=== PATIENT | female | born 1970 | race Caucasian/White ===

== ENCOUNTER 2023-07-14 17:08 | Emergency (ER) | payer OTHER, SELFPAY ==
[2023-07-14 17:59] VITALS: BP 159/109; PULSE 92; RESP 20; TEMP 36.8; O2SAT 98
[2023-07-14 22:11] VITALS: BP 158/99; PULSE 74; RESP 16; O2SAT 100
--- NOTE | 2023-07-14 23:44 | ED.GENADULT ---
HPI - General Adult General Chief complaint: Wound/Laceration Stated complaint: left middle and ring finger laceration Time Seen by Provider: 07/14/23 22:10 Source: patient Mode of arrival: ambulatory Limitations: no limitations History of Present Illness HPI narrative: This is a 53-year-old female who presents to the ED with chief complaint of left middle finger laceration while using a box knife tonight. She accidentally cut the finger while trying to cut backwards. Reports minor cuts of the left 4th finger but more significant to the middle finger. Denies any further sites of pain or injury. Denies numbness or weakness. Bleeding controlled. Related Data Allergies Allergy/AdvReac Type Severity Reaction Status Date / Time No Known Allergies Allergy Verified 07/14/23 22:11 Review of Systems Review of Systems: All systems as dictated in HPI Exam Narrative: GENERAL: Well-appearing, well-nourished, and in no acute distress. HEAD: Normocephalic, atraumatic. EYES: PERRLA and EOMI. ENT: Nares clear, no rhinorrhea or epistaxis. Mucous membranes moist. Oropharynx without tonsillar hypertrophy exudate or other lesions. NECK: Supple. No adenopathy or masses. CHEST: No respiratory distress. Clear to auscultation. No wheezes rales or rhonchi HEART: Regular rate and rhythm. No murmur heard. Normal peripheral pulses. ABDOMEN: Soft, nontender, nondistended, normal active bowel sounds. MSK: Normal range of motion. No edema. SKIN: 3 cm laceration to the distal middle finger palmar, abutting the nail but does not involve nail. Bleeding controlled. NEURO: Alert and oriented x3. No focal deficits. PSYCH: Normal mood and affect. Course Vital Signs Vital signs: Vital Signs Temperature 98.2 F 07/14/23 17:59 Pulse Rate 92 07/14/23 17:59 Respiratory Rate 20 07/14/23 17:59 Blood Pressure 159/109 H 07/14/23 17:59 Pulse Oximetry 98 07/14/23 17:59 Oxygen Delivery Room Air 07/14/23 17:59 Temperature 98.2 F 07/14/23 17:59 Pulse Rate 74 07/14/23 22:11 Respiratory Rate 16 07/14/23 22:11 Blood Pressure 158/99 H 07/14/23 22:11 Pulse Oximetry 100 07/14/23 22:11 Oxygen Delivery Room Air 07/14/23 17:59 Procedures Laceration Laceration 1: Date: 07/14/23 Time: 23:44 Site: hand (Middle finger) Side (If applicable): left Size (cm): 3 Description: linear Depth: simple, single layer Local Anesthetic: lidocaine 1% (Digital block) Amount of anesthesia used (mL): 3 Pre-repair: wound explored and irrigated extensively ====== Skin Level ====== Skin layer closed with: nylon Size (cm): 5-0 Number of sutures: 6 Technique: simple, interrupted ====== Subcutaneous Layer ====== ====== Muscle Layer ====== ====== Tendon Layer ====== Medical Decision Making MDM Narrative Medical decision making narrative: This is a 53-year-old female who presents to the ED with chief complaint of left middle finger injury/laceration. Vitals are normal. Exam shows 3 cm laceration. No nail involvement. Wound was well cleaned and irrigated here in the department. Sutures placed. Tetanus updated. Laceration instructions given. Pt will be discharged in stable condition. Return precautions given and supportive measures discussed. Pt is understanding and agreeable with plan for discharge and follow-up with PCP. Vital Signs Vital Signs: Vital Signs Temperature 98.2 F 07/14/23 17:59 Pulse Rate 92 07/14/23 17:59 Respiratory Rate 20 07/14/23 17:59 Blood Pressure 159/109 H 07/14/23 17:59 Pulse Oximetry 98 07/14/23 17:59 Oxygen Delivery Room Air 07/14/23 17:59 Temperature 98.2 F 07/14/23 17:59 Pulse Rate 74 07/14/23 22:11 Respiratory Rate 16 07/14/23 22:11 Blood Pressure 158/99 H 07/14/23 22:11 Pulse Oximetry 100 07/14/23 22:11 Oxygen Delivery Room Air
[2023-07-15] MEDS: TETANUS,DIPHTHERIA,AC PERTUSSIS ADULT (0.5 ML) BOOSTRIX IM (00:07)
== END 2023-07-15 00:11 | disposition home or self-care (01) ==
PROVIDERS: Emergency Provider Physician Assistant
DX: S61.213A Laceration without foreign body of left middle finger without damage to nail, initial encounter (principal); Z23 Encounter for immunization; W27.0XXA Contact with workbench tool, initial encounter
CPT/HCPCS: 12002; 90471; 90715; 99282

== ENCOUNTER 2023-07-16 16:49 | Emergency (ER) | payer OTHER, SELFPAY ==
[2023-07-16 16:56] VITALS: BP 145/80; PULSE 84; RESP 16; TEMP 36.6; O2SAT 100
--- NOTE | 2023-07-16 17:11 | ED.GENADULT ---
HPI - General Adult General Chief complaint: Wound/Laceration Stated complaint: Stitches Source: patient Mode of arrival: ambulatory Limitations: no limitations History of Present Illness HPI narrative: Patient presents for evaluation of redness to the 3rd digit left hand. She was evaluated on the emergency department on 07/14/2023 for a laceration that she sustained when she accidentally cut herself. She had six sutures placed at that time. Today she noted redness surrounding the laceration on the lateral aspect of the digit. Denies any drainage from the area. No fever, chills, nausea, vomiting. She is not diabetic. UTD on tetanus. She has mild pain in the affected area, without numerical rating or descriptive quality. No paresthesias. Related Data Home Medications Medication Instructions Recorded Confirmed cyclosporine 0.09 % eye drops in a 1 drp ophthalmic (eye) DAILY 07/16/23 07/16/23 dropperette (Cequa) Allergies Allergy/AdvReac Type Severity Reaction Status Date / Time No Known Allergies Allergy Verified 07/16/23 17:03 Review of Systems Review of Systems: CONSTITUTIONAL: Denies fever, chills, or sweats. EYES: Denies visual changes, redness, or discharge. ENT: Denies rhinorrhea, congestion, sore throat, or otalgia. CARDIOVASCULAR: Denies chest pain, palpitations, or edema. RESPIRATORY: Denies cough or dyspnea. GASTROINTESTINAL: Denies abdominal pain, nausea, vomiting, or diarrhea. GENITOURINARY: Denies dysuria or hematuria. SKIN: Reports healing laceration to 3rd digit of the left hand with surrounding redness MUSCULOSKELETAL: Denies back pain, joint pain, or myalgia. NEUROLOGIC: Denies headache, numbness, dizziness, or weakness. PSYCHIATRIC: Denies anxiety or depression. [facility] Past Medical History Medical History No pertinent past medical history Surgical History Surgical History No pertinent past surgical history Family History Family History Mother Family history non-contributory Social History Social History Smoking status: Never smoker Substance use: never Gender identity (if verbalized by the patient): Female Spiritual care concerns: No Exam Narrative: GENERAL: Well-appearing, well-nourished, and in no acute distress. HEAD: Normocephalic, atraumatic. EYES: PERRLA and EOMI. ENT: Nares clear, no rhinorrhea or epistaxis. Mucous membranes moist. Oropharynx without tonsillar hypertrophy exudate or other lesions. Bilateral TMs pearly lucas nonbulging NECK: Supple. No adenopathy or masses. No carotid bruits or JVD CHEST: Clear to auscultation. No respiratory distress. No wheezes rales or rhonchi HEART: Regular rate and rhythm. No murmur heard. Normal peripheral pulses. ABDOMEN: Soft, nontender, nondistended, normal active bowel sounds. EXTREMITIES: Normal range of motion. No edema. SKIN: There is a 3 cm laceration to the distal phalanx of the 3rd digit of the left hand in a flap formation. Wound is well approximated, but there is erythema surrounding the laceration which is limited to the distal phalanx. NEURO: No focal deficits. Alert and oriented x3. PSYCH: Normal mood and affect. Course Course Emergency Course: This is a 53-year-old female who presented for evaluation of redness to the distal phalanx of her 3rd digit of the left hand after recent laceration repair. Will initiate antibiotic therapy with cephalexin today. Doubt MRSA component as there is no purulence however I advised that if her symptoms persist or worsen she should return here or go to the ER. She should also go to the ER for fever, chills, nausea, vomiting or other concerning symptoms. Pt in agreement with plan of care. Level of Care: Express Care Vi
== END 2023-07-16 17:12 | disposition home or self-care (01) ==
PROVIDERS: Emergency Provider Nurse Practitioner
DX: T81.41XA Infection following a procedure, superficial incisional surgical site, initial encounter (principal); L08.9 Local infection of the skin and subcutaneous tissue, unspecified
CPT/HCPCS: 99213; G0463

== ENCOUNTER 2023-07-21 14:03 | Emergency (ER) | payer OTHER, SELFPAY ==
[2023-07-21 14:11] VITALS: BP 132/82; PULSE 92; RESP 16; TEMP 36.9; O2SAT 97
--- NOTE | 2023-07-21 14:12 | ED.SKABFB ---
HPI - Skin/Abscess/Foreign Bdy General Chief complaint: Skin/Abscess/Foreign Body Stated complaint: Stitches Time Seen by Provider: 07/21/23 14:12 Source: patient Mode of arrival: ambulatory Limitations: no limitations History of Present Illness HPI narrative: Patient is a 53-year-old female presents for suture removed from left 3rd digit. Patient is currently on Keflex for infection. Denies any drainage from stitches. Still reports mild pain. Related Data Home Medications Medication Instructions Recorded Confirmed cyclosporine 0.09 % eye drops in a 1 drp ophthalmic (eye) DAILY 07/16/23 07/16/23 dropperette (Cequa) Allergies Allergy/AdvReac Type Severity Reaction Status Date / Time No Known Allergies Allergy Verified 07/16/23 17:03 Review of Systems Review of Systems: All systems reviewed & are unremarkable except as noted in HPI and below Constitutional: Constitutional: Denies body ache(s), Denies chills, Denies fatigue, Denies fever(s), Denies headache(s), Denies malaise and Denies weakness Eyes: Eyes: Denies blurry vision, Denies irritation and Denies loss of vision ENT: Denies otalgia, Denies headache(s), Denies nasal discharge, Denies sinus pain and Denies sore throat Cardiovascular: Cardiovascular: Denies chest pain, Denies irregular heart rhythm and Denies dyspnea Respiratory: Respiratory: Denies dyspnea Gastrointestinal: Gastrointestinal: Denies abdominal pain, Denies melena, Denies hematochezia, Denies diarrhea, Denies nausea and Denies vomiting Musculoskeletal: Musculoskeletal: Denies back pain, Denies myalgias and Denies arthralgias Integumentary/Breasts: Skin/Breast: Denies pruritus, Denies rash and Reports wounds Neurologic: Denies headache(s), Denies loss of vision and Denies weakness Psychiatric: Psychiatric: Reports no additional psychiatric complaints Endocrine: Endocrine: Denies fatigue PMFSH Past Medical History Medical History No pertinent past medical history Surgical History Surgical History No pertinent past surgical history Family History Family History Mother Family history non-contributory Social History Social History Smoking status: Never smoker Substance use: never Gender identity (if verbalized by the patient): Female Spiritual care concerns: No Comments At time of signature, agree with nursing past medical, surgical, social and family history. There is no relevant family history pertinent to the presenting complaint. Exam Const: General: cooperative, healthy appearing, comfortable, no acute distress and well nourished Nutritional Appearance: well nourished Orientation/consciousness: patient oriented x3 Limitations: no limitations HENMT: Head: normal to inspection, normocephalic and atraumatic Ears: hearing grossly normal bilaterally and external ears normal Face/Nose/Sinus: Normal external nose present, normal facial exam and face symmetric Face and sinus: normal facial exam and face symmetric Mouth: Yes lip normal Eyes: General: appearance normal, both eyes and all related structures Alignment and Position: alignment normal and position normal Periorbital: periorbital findings normal Eyelids: eyelids normal Pupils: Equal, round and reactive pupils present EOM: EOMs intact bilaterally Neck: Neck: normal visual inspection, full ROM and supple Chest: Chest palpation & inspection: normal inspection of the chest Resp: Effort & Inspection: normal respiratory effort and able to speak in complete sentences Auscultation: clear to auscultation bilaterally Cardio: Rate: regular rate Rhythm: regular rhythm Heart sounds: S1 normal heart sound present and S2 normal heart sound present GI: Inspection: normal to inspection Ski
== END 2023-07-21 14:41 | disposition home or self-care (01) ==
PROVIDERS: Emergency Provider Nurse Practitioner Family
DX: S61.213D Laceration without foreign body of left middle finger without damage to nail, subsequent encounter (principal); X58.XXXD Exposure to other specified factors, subsequent encounter
CPT/HCPCS: 99211; G0463